=== PATIENT | female | born 1970 | race Caucasian/White ===

== ENCOUNTER 2016-11-04 02:53 | Emergency (ER) | payer OTHER ==
[~2016-11-04] VITALS: Ht 152.4 cm; Wt 67.9 kg
[2016-11-04 03:01] VITALS: TEMP 37; Ht 152.4 cm; Wt 67.9 kg
[2016-11-04] MEDS ORDERED: SODIUM CHLORIDE 0.9% 1000ML 1,000 ML IV STA (03:16)
[2016-11-04] MEDS ORDERED: KETOROLAC TROMETHAMINE 30 MG/ML VIAL IV STA (03:21)
[2016-11-04 03:43] LABS: MANUAL MICROSCOPIC REQUIRED? NO; REVIEW REQ? NO; URINE APPEARANCE CLEAR (CLEAR); URINE BILIRUBIN NEG (NEG); URINE COLOR YELLOW; URINE NITRITE NEG (NEG); URINE PH 6.5 (4.5-7.5); UROBILINOGEN NEG (NEG); ZZUR CULT IF INDIC CLEAN CATCH NO
[2016-11-04] MEDS ORDERED: TOPI25TA10 PO (03:47)
[2016-11-04] MEDS ORDERED: PRAM0.129 PO (03:48)
[2016-11-04] MEDS ORDERED: CHOL100010 PO (03:50)
[2016-11-04] MEDS ORDERED: FLUT0.15 NAE (03:51)
[2016-11-04] MEDS ORDERED: SUMA50TA15 PO (03:51)
[2016-11-04 03:56] LABS: BASO % 0.4 %; BASO ABS # 0.03 K/uL (0-0.2); COMPLETE YES; EOS % 1.7 %; HEMATOCRIT 39.6 % (37-47); IG% 0.3 %; LYMPH % 39.6 %; LYMPH ABS # 2.77 K/uL (1.2-3.4); MEAN CELL VOLUME 87.8 fL (80-100); MEAN CORPUSCULAR HEMOGLOBIN 29.7 pg (25-34); MEAN CORPUSCULAR HGB CONC 33.8 g/dl (32-36); MEAN PLATELET VOLUME 10.8 fL (7.4-10.4); MONO % 7.3 %; NEUT % 50.7 %; PLATELET COUNT 286 K/uL (130-400); RED BLOOD COUNT 4.51 M/uL (4.2-5.4); WHITE BLOOD COUNT 6.99 K/uL (4.8-10.8)
[2016-11-04 04:28] LABS: ALB/GLOB RATIO 1.2 (0.9-2); BUN/CREATININE RATIO 16.3 (10-20); CALCIUM 8.8 mg/dl (8.5-10.1); CREATININE 0.78 mg/dl (0.60-1.20); MAGNESIUM 2.2 mg/dl (1.8-2.4); POTASSIUM 3.5 mmol/L (3.5-5.1)
[2016-11-04] MEDS ORDERED: TRAMADOL HCL 50 MG HOME PACK PO ONE (05:30)
[2016-11-04] MEDS ORDERED: TRAM-10 PO (05:34)
[2016-11-04] MEDS ORDERED: PRED50TA PO (05:34)
[2016-11-04] MEDS ORDERED: CYCL10TA6 PO (05:34)
--- NOTE | 2016-11-04 05:35 | EMERGENCY ROOM VISIT NOTE ---
History First contact with patient: 03:09 Chief Complaint: BACK PAIN Stated Complaint: LOWER BACK PAIN, ABDOMINAL PAIN, NAUSEA History of Present Illness The patient is a 46 year old female who presents to the Emergency Department by private vehicle for evaluation of her low back pain and upper abdominal pain. She reports having symptoms of the last few days. She had increasing pain this evening which prompted her visit to the emergency department. She denies any falls or injuries to the spine. She denies any burning with urination or blood in her urine. She is tried nothing [id number] for her symptoms. She denies any fevers, chills, chest pain, palpitations, short of breath, nausea, vomiting, hematochezia, melena, hematuria, or dysuria. She denies any history of similar symptoms. She denies any loss of control bowel/bladder saddle anesthesia. She rates her current discomfort as an 8/10. She's had no previous abdominal surgeries. Review of Systems A complete 10-point Review of Systems was discussed with the patient, with pertinent positives and negatives listed in the History of Present Illness. All remaining Review of Systems questions can be considered negative unless otherwise specified. Social History Smoking Status: Never Smoker Smokeless Tobacco Use: No Drug Use: none Occupation Status: employed Current/Historical Medications Scheduled Cholecalciferol (Vitamin D), 1,000 UNITS PO DAILY Cyclobenzaprine Hcl (Flexeril), 10 MG PO TID Fluticasone Propionate (Nasal) (Flonase Allergy Relief), 2 SPRAYS AURELIANO DAILY Pramipexole (Mirapex), 0.125 MG PO HS Prednisone (Prednisone), 50 MG PO DAILY Sumatriptan Succinate (Imitrex), 50 MG PO PRN Topiramate (Topamax), 50 MG PO HS Scheduled PRN Tramadol (Ultram), 1-2 TAB PO Q4H PRN for Pain Allergies Coded Allergies: Bupropion (Verified Allergy, Unknown, does crazy things, 11/04/16) Physical Exam Vital Signs Date Time Temp Pulse Resp B/P Pulse Ox O2 Delivery O2 Flow Rate FiO2 11/04/16 05:46 79 18 128/82 100 11/04/16 04:03 87 18 106/65 97 Room Air 11/04/16 03:01 37.0 93 18 127/80 97 Room Air Pain Rating (0-10): 8 Physical Exam VITAL SIGNS - Vital signs and nursing notes were reviewed. GENERAL - 46-year-old female appearing her stated age and in noticeable discomfort throughout the exam. NECK - FROM of the cervical spine. ABDOMEN - Abdominal contour flat without pulsations or visible masses. BS normoactive all four quadrants. No tenderness, palpable masses, hepatosplenomegaly, or ascites noted. MUSCULOSKELETAL - ROM of the lumbar spine region was assessed as full. Pt was seated on the exam table. Pt made fluent movements when asked to change position. No step-off deformities were palpated down the thoracolumbar spines. No Tenderness to Palpation experienced at the level of the throughout the paraspinal muscle distribution. No reproducible tenderness to palpation across the iliac spine. NEUROLOGIC - REFLEXES: +3/4 patellar reflexes B/L. SENSORY: Spinothalamic tract was found to be intact with ability to discriminate sharp versus dull sensation at the level of hip joint down do the great toe. No sensory defects of the dorsal column were appreciated utilizing light touch for evaluation. CEREBELLAR: Pt able to perform rapid alternating movements of the feet. EXTREMITIES - Range of Motion - No tremors, ticks, or fasciculations of the lower extremities noticed during inspection. FROM of the lower extremities. No clonus noted with PROM of the lower extremities bilaterally. Pt had +5/5 strength appreciated bilaterally in the lower extremities against examiner's resistance. VASCULAR - Capillary refill of the great toe was brisk. No mottling or blanching of the extremities present. +3/5 dorsalis pedis pulses palpated bilaterally. Medical Decision & Procedures ER Provider Diagnostic Interpretation: Radiological imaging and reports were reviewed by myself. Radiologist's Interpretation per [facility] as follows: CT ABDOMEN & PELVIS: Tiny noncalcified pulmonary nodule right middle lobe of doubtful clinical significance. Punctate nonobstructing nephrolithiasis; no obstructing radiopaque urolithiasis or secondary sequela. Normal appearing appendix. Contracted gallbladder. Small fat-containing periumbilical hernia, uncomplicated. CT L SPINE: No acute fracture or malalignment. Straightening of the normal lordotic curvature noted with superimposed mild levocurvature. No visualized this bulge or protrusion. Neural foramina are relatively preserved. Right-sided sacral Tarlov cyst questioned. Punctate nonobstructing nephrolithiasis noted. Visualized appendix unremarkable. Laboratory Results 11/04/16 03:45 Red Blood Count 4.51, Mean Corpuscular Volume 87.8, Mean Corpuscular Hemoglobin 29.7, Mean Corpuscular Hemoglobin Concent 33.8, Mean Platelet Volume 10.8, Neutrophils (%) (Auto) 50.7, Lymphocytes (%) (Auto) 39.6, Monocytes (%) (Auto) 7.3, Eosinophils (%) (Auto) 1.7, Basophils (%) (Auto) 0.4, Neutrophils # (Auto) 3.54, Lymphocytes # (Auto) 2.77, Monocytes # (Auto) 0.51, Eosinophils # (Auto) 0.12, Basophils # (Auto) 0.03 11/04/16 03:45 Test 11/04/16 00:00 11/04/16 03:45 Urine Color YELLOW Urine Appearance CLEAR (CLEAR) Urine pH 6.5 (4.5-7.5) Urine Specific Spring 1.000 (1.000-1.030) Urine Protein NEG (NEG) Urine Glucose (UA) NEG (NEG) Urine Ketones NEG (NEG) Urine Occult Blood NEG (NEG) Urine Nitrite NEG (NEG) Urine Bilirubin NEG (NEG) Urine Urobilinogen NEG (NEG) Urine Leukocyte Esterase NEG (NEG) White Blood Count 6.99 K/uL (4.8-10.8) Red Blood Count 4.51 M/uL (4.2-5.4) Hemoglobin 13.4 g/dL (12.0-16.0) Hematocrit 39.6 % (37-47) Mean Corpuscular Volume 87.8 fL (80-100) Mean Corpuscular Hemoglobin 29.7 pg (25-34) Mean Corpuscular Hemoglobin Concent 33.8 g/dl (32-36) Platelet Count 286 K/uL (130-400) Mean Platelet Volume 10.8 fL (7.4-10.4) Neutrophils (%) (Auto) 50.7 % Lymphocytes (%) (Auto) 39.6 % Monocytes (%) (Auto) 7.3 % Eosinophils (%) (Auto) 1.7 % Basophils (%) (Auto) 0.4 % Neutrophils # (Auto) 3.54 K/uL (1.4-6.5) Lymphocytes # (Auto) 2.77 K/uL (1.2-3.4) Monocytes # (Auto) 0.51 K/uL (0.11-0.59) Eosinophils # (Auto) 0.12 K/uL (0-0.5) Basophils # (Auto) 0.03 K/uL (0-0.2) RDW Standard Deviation 42.2 fL (36.4-46.3) RDW Coefficient of Variation 13.1 % (11.5-14.5) Immature Granulocyte % (Auto) 0.3 % Immature Granulocyte # (Auto) 0.02 K/uL (0.00-0.02) Anion Gap 9.0 mmol/L (3-11) Est Creatinine Clear Calc Drug Dose 78.3 ml/min Estimated GFR () 106.4 Estimated GFR (Non- 91.8 BUN/Creatinine Ratio 16.3 (10-20) Calcium Level 8.8 mg/dl (8.5-10.1) Magnesium Level 2.2 mg/dl (1.8-2.4) Total Bilirubin 0.2 mg/dl (0.2-1) Aspartate Amino Transf (AST/SGOT) 12 U/L (15-37) Alanine Aminotransferase (ALT/SGPT) 18 U/L (12-78) Alkaline Phosphatase 61 U/L (45-117) Total Protein 7.0 gm/dl (6.4-8.2) Albumin 3.8 gm/dl (3.4-5.0) Globulin 3.2 gm/dl (2.5-4.0) Albumin/Globulin Ratio 1.2 (0.9-2) Lipase 187 U/L (73-393) Chemistry Specimen Hemolysis Medications Administered Medications (Trade) Dose Ordered Sig/Reva Route Start Time Stop Time Status Last Admin Dose Admin Sodium Chloride (Nss 1000ml) 1,000 ml @ 999 mls/hr Q1H1M STAT IV 11/04/16 03:16 11/04/16 04:16 DC 11/04/16 04:01 999 MLS/HR Ketorolac Tromethamine (Toradol Inj) 30 mg NOW STAT IV 11/04/16 03:21 11/04/16 03:22 DC 11/04/16 03:47 30 MG Prednisone (PredniSONE TAB) 60 mg NOW STAT PO 11/04/16 05:23 11/04/16 05:24 DC 11/04/16 05:31 60 MG Tramadol HCl (Ultram Home Pack) 1 homepack UD ONCE PO 11/04/16 05:30 3 05:31 DC 11/04/16 05:31 1 HOMEPACK ED Course Patient was seen and evaluated by myself. Labs were drawn, saline lock in place. The patient was hydrated with 1000 mL normal saline bolus. Patient received 30 g Toradol intravenously for pain. CT the abdomen and pelvis and lumbar spine were obtained. Laboratory results demonstrate no acute leukocytosis, worrisome anemia, or bandemia. The patient has no significant electrolyte abnormalities. Urinalysis does not suggest infection. Laboratory results and imaging studies were reviewed with the patient who acknowledges understanding. The patient was encouraged to follow with her primary care provider from today's visit. She was educated on worrisome symptoms for return visit to the emergency part. Patient discharged home in good condition. Medical Decision Given the patient's presentation and stated complaints, I did elect to perform the above-mentioned workup. The patient resents today with pain in the low back. She has no significant reproducible symptoms. She has no radicular symptoms of concern for acute compressive etiology. She is no fever leukocytosis. CT is unremarkable for stone or other acute intra-abdominal pathology. CT of the lumbar spine demonstrated no acute findings either. The patient's symptoms are likely stemming from musculoskeletal discomfort. She was provided prednisone as well as Flexeril and Ultram to be used in the outpatient setting. She will follow-up with her primary care provider or return for any changing/worsening symptoms. Patient discharged home afebrile and in good condition. In the evaluation and treatment of this patient the following differential diagnoses were considered: Cauda equina syndrome, discitis, HNP, sciatica, epidural abscess, psoas abscess, musculoskeletal strain, lumbar fracture, lumbar dislocation, lumbar subluxation, spondylolisthesis, spondylosis, compression fracture, Appendicitis, Diverticulitis, Diverticulosis, Colitis, Ischemic Colitis, Inflammatory Bowel Disease, Irritable Bowel Disease, Ovarian Torsion, Kidney Stone, Pyelonephritis, Hydronephrosis, Cholecystitis, Ascending Cholangitis, Choledocholithiasis, GERD. Impression Primary Impression: Back pain Departure Information Dispostion Home / Self-Care Condition GOOD Prescriptions Cyclobenzaprine Hcl (FLEXERIL) 10 Mg Tab 10 MG PO TID for 5 Days, #15 TAB Prov: Elia Camacho PA-C 11/04/16 Prednisone (Prednisone) 50 Mg Tab 50 MG PO DAILY for 4 Days, #4 TAB Prov: Elia Camacho PA-C 11/04/16 Tramadol (Ultram) 50 Mg Tab 1-2 TAB PO Q4H Y for Pain, #16 TAB For Initial Treatment Prov: Elia Camacho PA-C 11/04/16 Referrals Day,Shanna Hernandez (PCP) Patient Instructions Back Pain - [facility], [facility] Additional Instructions You have been treated in the Emergency Department for Back Pain. You have been prescribed Ultram to be used for pain control. You cannot drive or consume alcohol while on this medicine. This medicine should only be used for pain that cannot be controlled with dyit-oaf-[id number] pain medicines. You have been prescribed Flexeril (cyclobenzaprine) 1-2 tabs orally, three times per day. Do NOT exceed 30 mg (6 tabs) per day. Take your first dose at bedtime as it can make you drowsy. Always take all medications as prescribed. You have been prescribed Prednisone 50 mg to be taken orally once a day for the next 4 days. This is an anti-inflammatory medicine to be used to help minimize your symptoms. You should take the COMPLETE course of the medication. For pain control, you can use the following [id number] medicines (if >12 yo): - Regular strength (325mg/tab) Tylenol (acetaminophen) 2 tabs every 4-6 hours as needed. Do not exceed 12 tablets in a 24 hour period. Avoid taking more than 4 grams (4000 mg) of Tylenol per day. This includes any other sources of acetaminophen you may take on a regular basis. - Regular strength (200 mg/tab) Advil (ibuprofen) 1-2 tabs every 4-6 hours as needed. Do not exceed a dose of 3200 mg per day. If this is an acute injury, ice can be applied to the area of pain for the first 3 days to help decrease pain and inflammation. After the first 3 days, a heating pad can be used over the area for continued soothing relief. You should schedule a follow-up appointment in 2-3 days with your Primary Care Provider for further evaluation and treatment of your back pain. Return to the Emergency Department if your current symptoms worsen despite treatment course outlined above, or if you develop any of the following symptoms : intractable pain despite aforementioned treatment course, loss of control of your bowel or bladder, numbness or tingling in your groin, or development of a fever. Problem Qualifiers Primary Impression: Back pain Back pain location: low back pain Chronicity: acute Back pain laterality: bilateral Sciatica presence: without sciatica Qualified Codes: M54.5 - Low back pain
[2016-11-04 05:46] VITALS: BP 128/82; PULSE 79; O2SAT 100
--- NOTE | 2016-11-04 08:01 | DIAGNOSTIC IMAGING REPORT ---
LUMBAR SPINE CT CT DOSE: HISTORY: Pain back pain TECHNIQUE: Multiaxial CT images of the lumbar spine were performed and reformatted in the sagittal and coronal plane without the use of contrast. COMPARISON: None. FINDINGS: No fractures. No subluxation. Paraspinal soft tissues are unremarkable. Minimal degenerative disc change. No significant abnormality of the posterior elements. IMPRESSION: Minimal degenerative change. No acute process. Electronically signed by: Evaristo Bernard M.D. 11/04/2016 8:00 AM Dictated Date/Time: 11/04/2016 7:59 AM
--- NOTE | 2016-11-04 08:04 | DIAGNOSTIC IMAGING REPORT ---
ABDOMEN AND PELVIS CT WITHOUT CONTRAST CT DOSE: 542.84 mGy.cm HISTORY: Pain pelvic/back pain TECHNIQUE: Multiaxial CT images of the abdomen and pelvis were performed without the use of intravenous and oral contrast according to the standard department stone protocol. COMPARISON STUDY: None. FINDINGS: The lung bases are clear. The unenhanced liver, gallbladder, spleen, pancreas, and adrenal glands are unremarkable. No renal stones or hydronephrosis. No bowel wall thickening or obstruction. The pelvic organs are unremarkable. No suspicious lytic or blastic osseous lesions. Normal appendix. Nonobstructive bowel pattern. IMPRESSION: No acute process Electronically signed by: Evaristo Bernard M.D. 11/04/2016 8:02 AM Dictated Date/Time: 11/04/2016 8:01 AM
== END 2016-11-04 05:46 | disposition home or self-care (01) ==
LOC: C.EDB 02:55
DX: M54.5 Low back pain (principal); R10.10 Upper abdominal pain, unspecified; Z79.899 Other long term (current) drug therapy; Z88.8 Allergy status to other drugs, medicaments and biological substances